=== PATIENT | female | born 1940 | race American Indian/Alaskan Native ===

== ENCOUNTER 2016-10-26 09:54 | Outpatient (CLI) | payer MEDICARE, OTHER ==
[2016-10-26 10:52] LABS: Blood Urea Nitrogen 7 mg/dL (7-17)
[2016-10-26] MEDS ORDERED: NACL ONE (11:18)
--- NOTE | 2016-10-26 12:37 | Cat Scan Report ---
CT ANGIOGRAM ABDOMEN AND PELVIS HISTORY: Abdominal aortic aneurysm without rupture. TECHNIQUE: Helical CT following IV contrast. Sagittal and coronal reformatted images. Three-dimensional volume rendering technique. NASCET criteria was utilized. Comparison: 04/27/15. FINDINGS: The infrarenal AAA has increased in size from 4.2 x 4.0 cm to 4.5 x 4.4 cm. There is increased mural thrombus within the aneurysm sac by approximately 25%. The aneurysm begins 5 cm distal to the takeoff of the renal arteries and extends to the bifurcation. No dissection or stenosis. The common iliac arteries are normal caliber but demonstrate mild partially calcified plaques. The external iliac arteries are normal caliber demonstrating less than 20% stenosis. 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 There is minimal aneurysmal dilatation in the left internal iliac artery measuring 1.5 cm which is unchanged. The liver is normal size and contour. 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 The spleen is normal size. The biliary system and pancreas are unremarkable. Multiple simple right renal cysts measuring up to 2 cm are unchanged. The left kidney is unremarkable. Normal adrenal glands. The bowel loops appear normal caliber and wall thickness. Normal appendix. The bladder is partially empty but unremarkable. There are multiple radiotherapy beads in the prostate gland. The bony structures are intact. No suspicious bony lesion. IMPRESSION: The infrarenal AAA containing mural thrombus has increased to 4.5 cm in maximum diameter, see above. Stable bilateral internal iliac artery aneurysms as outlined above.
== END 2016-10-26 09:55 | disposition home or self-care (01) ==
LOC: CT 09:54
PROVIDERS: ATTEND Surgery Vascular Surgery
DX: I71.4 Abdominal aortic aneurysm, without rupture (principal); N28.1 Cyst of kidney, acquired; I70.8 Atherosclerosis of other arteries; D18.09 Hemangioma of other sites
CPT/HCPCS: 36415; 74174; 82565; 84520; Q9967